=== PATIENT | male | born 1960 | race Caucasian/White ===

== ENCOUNTER 2025-08-22 08:30 | Outpatient (RCR) | payer OTHER, SELFPAY ==
[2025-03-31 10:45] LABS: Hematocrit* 34.6 % (37.0-53.0); Hemoglobin* 11.7 gm/dL (13.5-17.5); Immature Granulocytes Pct Auto 0.2 %; Mean Corpuscular HGB Conc 34 gm/dL (32-36); Mean Corpuscular Hemoglobin 34 pg (26-34); Mean Corpuscular Volume 99 fL (80-100); RDW Coefficient of Variation % 13.6 % (11.5-15.5); Red Blood Count* 3.49 m/uL (4.30-5.90); White Blood Count* 4.44 K/uL (4.50-11.00)
[2025-03-31 10:48] LABS: Immature Granulocytes Abs Auto 0.00 K/uL (0.00-0.30); Lymphocytes Absolute Auto 1.40 K/uL (0.90-2.90); Slide Review Reflex No
[2025-03-31 10:59] LABS: Albumin* 4.4 g/dL (3.3-5.0); Chloride* 107 mmol/L (96-114); Potassium* 4.1 mmol/L (3.6-5.1); Sodium* 139 mmol/L (135-149)
[2025-03-31 11:01] LABS: Blood Urea Nitrogen* 18 mg/dL (7-30); Creatinine* 0.7 mg/dL (0.5-1.5); Est. Creatinine Clearance* 63.21; Estimated Glomerular Filt Rate 102 ml/min
[2025-03-31 11:02] LABS: Alanine Aminotransferase* 22 U/L (4-50); Alkaline Phosphatase* 99 U/L (40-150); Anion Gap 9 mEq/L (7-15); Aspartate Amino Transferase* 33 U/L (12-35); Bilirubin Total* 1.0 mg/dL (0.1-1.5); Carbon Dioxide* 23 mmol/L (20-32); Total Protein* 8.2 g/dL (6.0-8.3)
[2025-03-31 11:03] LABS: Calcium* 9.3 mg/dL (8.4-10.6); Glucose* 90 mg/dL (60-115)
[2025-04-02 08:54] LABS: Beta-2-Microglob Serum/Plasma 2.2 mg/L (<=3.0)
[2025-04-03 00:58] LABS: Albumin 4.00 g/dL (3.75-5.01); Immunoglobulin A 47 mg/dL (68-408); Immunoglobulin G 630 mg/dL (768-1632); Immunoglobulin M 2733 mg/dL (35-263)
[2025-08-16 13:25] LABS: Hematocrit* 30.5 % (37.0-53.0); Hemoglobin* 10.3 gm/dL (13.5-17.5); Immature Granulocytes Pct Auto 0.3 %; Mean Corpuscular HGB Conc 34 gm/dL (32-36); Mean Corpuscular Hemoglobin 34 pg (26-34); Mean Corpuscular Volume 100 fL (80-100); RDW Coefficient of Variation % 13.4 % (11.5-15.5); Red Blood Count* 3.06 m/uL (4.30-5.90); White Blood Count* 3.72 K/uL (4.50-11.00)
[2025-08-16 13:33] LABS: Immature Granulocytes Abs Auto 0.00 K/uL (0.00-0.30); Lymphocytes Absolute Auto 1.30 K/uL (0.90-2.90); Slide Review Reflex No
[2025-08-16 13:41] LABS: Albumin* 4.1 g/dL (3.3-5.0); Chloride* 108 mmol/L (96-114); Potassium* 3.8 mmol/L (3.6-5.1); Sodium* 140 mmol/L (135-149)
[2025-08-16 13:43] LABS: Blood Urea Nitrogen* 16 mg/dL (7-30); Creatinine* 0.7 mg/dL (0.5-1.5); Est. Creatinine Clearance* 63.21; Estimated Glomerular Filt Rate 102 ml/min
[2025-08-16 13:44] LABS: Alanine Aminotransferase* 23 U/L (4-50); Alkaline Phosphatase* 90 U/L (40-150); Anion Gap 8 mEq/L (7-15); Aspartate Amino Transferase* 31 U/L (12-35); Bilirubin Total* 0.6 mg/dL (0.1-1.5); Calcium* 9.2 mg/dL (8.4-10.6); Carbon Dioxide* 24 mmol/L (20-32); Glucose* 110 mg/dL (60-115); Total Protein* 7.8 g/dL (6.0-8.3)
[2025-08-17 20:59] LABS: Beta-2-Microglob Serum/Plasma 2.3 mg/L (<=3.0)
[2025-08-20 02:03] LABS: Albumin 3.74 g/dL (3.75-5.01); Immunoglobulin A 40 mg/dL (68-408); Immunoglobulin G 574 mg/dL (768-1632); Immunoglobulin M 2457 mg/dL (35-263)
== END 2025-09-27 23:59 | disposition home or self-care (01) ==
LOC: CCIC 08:30
PROVIDERS: Internal Medicine Hematology & Oncology; PCP Student in an Organized Health Care Education/Training Program; Referring Provider Student in an Organized Health Care Education/Training Program; Visit Provider Internal Medicine Hematology & Oncology
DX: C88.00 Waldenstrom macroglobulinemia not having achieved remission (principal)
CPT/HCPCS: 36415; 80053; 82232; 82784; 83520; 84155; 84165; 84443; 85025; 86334; 99202; 99205; 99213; 99214; 99215; G0463

== ENCOUNTER 2025-11-12 09:34 | Outpatient (CLI) | payer MEDICARE, BC, SELFPAY | END 2025-11-12 09:35 | disposition home or self-care (01) | LOC: NFLDUCREF 09:35 | PROVIDERS: PCP Student in an Organized Health Care Education/Training Program | DX: L02.511 Cutaneous abscess of right hand (principal); L03.011 Cellulitis of right finger | CPT/HCPCS: 87070; 87186 ==